=== PATIENT | female | born 1950 | race Caucasian/White ===

== ENCOUNTER 2023-12-09 19:25 | Inpatient (IN) | payer MEDICARE ==
[2023-12-09 21:57] VITALS: BMI 33.8
[2023-12-09] MEDS ORDERED: Heparin 25,000 units/D5W 500 ML IVPB SCH (22:00)
[2023-12-09] MEDS ORDERED: Ondansetron ODT 4 MG TAB PO PRN (22:22)
[2023-12-09] MEDS ORDERED: Acetaminophen 325 MG TAB PO PRN (22:22)
[2023-12-09 22:46] LABS: Hematocrit 36.9 % (36.0-47.0); Hemoglobin 11.5 g/dL (12.0-16.0); Platelet Count 159 10x3/uL (130-400)
[2023-12-09 23:29] LABS: Troponin I Less than 0.010 ng/mL (< 0.028)
[2023-12-10 00:54] LABS: PTT Greater than 250.0 sec (22.9-36.1)
[2023-12-10 02:03] LABS: Troponin I Less than 0.010 ng/mL (< 0.028)
[2023-12-10 04:56] LABS: #Basophils Less than 0.03 10x3/uL (0.0-0.2); #Eosinphils Less than 0.03 10x3/uL (0.0-0.7); %Basophils 0.5 % (0.0-1.0); %Lymphocytes 16.4 % (21.0-51.0); %Monocytes 8.3 % (0.0-10.0); %Neutrophils 74.3 % (42.0-75.0); Hematocrit 34.3 % (36.0-47.0); Hemoglobin 11.1 g/dL (12.0-16.0); Mean Corpuscular HGB CONC 32.4 g/dL (32.0-36.0); Mean Corpuscular Hemoglobin 27.5 pg (27.0-31.0); Mean Corpuscular Volume 84.9 fL (78.0-98.0); Mean Platelet Volume 8.4 fL (7.4-10.4); Platelet Count 161 10x3/uL (130-400); RBC Distribution Width 14.5 % (11.5-14.5); Red Blood Cell (RBC) Count 4.04 mill/uL (4.20-5.40)
[2023-12-10 05:38] LABS: INR-International Normal Ratio 1.1; Prothrombin Time 14.2 sec (12.0-14.7)
[2023-12-10 05:41] LABS: ALT (SGPT) 18 U/L (8-55); AST (SGOT) 23 U/L (5-34); Alkaline Phosphatase 313 U/L (40-110); Anion Gap 12 mmol/L (10-20); BUN (Urea Nitrogen) 19 mg/dL (9.8-20.1); Bilirubin, Total 0.7 mg/dL (0.2-1.2); Calc. Creatinine Clearance 53 mL/min (70-130); Calcium 8.9 mg/dL (7.8-10.44); Carbon Dioxide 20 mmol/L (23-31); Chloride 111 mmol/L (98-107); Estimated GFR 45; Globulin 3.8 g/dL (2.4-3.5); Glucose 125 mg/dL (83-110); Potassium 3.5 mmol/L (3.5-5.1); Protein, Total 6.8 g/dL (5.8-8.1); Sodium 139 mmol/L (136-145)
[2023-12-10 05:48] LABS: D-Dimer Test 5.35 mcg/mL (0.27-0.43)
[2023-12-10 08:39] LABS: Hematocrit 34.2 % (36.0-47.0); Hemoglobin 10.8 g/dL (12.0-16.0); Platelet Count 157 10x3/uL (130-400)
[2023-12-10] MEDS: Levothyroxine 175 MCG TAB PO SCH (09:00)
[2023-12-10] MEDS: Rosuvastatin 20 MG TAB PO SCH (10:09)
[2023-12-10] MEDS: Apixaban 5 MG TAB PO SCH (10:09)
[2023-12-10] MEDS: Metoprolol Tartrate 50 MG TAB PO SCH (10:10)
[2023-12-10] MEDS: Metoprolol Tartrate 25 MG TAB PO SCH ×2 (16:33→20:42)
[2023-12-10] MEDS: Communication Order-Pharmacy FS ONE (17:20)
[2023-12-10] MEDS ORDERED: Metoprolol Tartrate 25 MG TAB PO SCH (21:00)
[2023-12-11] MEDS: Levothyroxine 175 MCG TAB PO SCH (05:41)
[2023-12-11 12:42] LABS: Cardiolipin IgA Ab 3.1 APL-U/mL (<14 Negative); Cardiolipin IgM Ab 5.6 MPL-U/mL (<10 Negative); EliA APS New Method **** NEW METHOD ****
[2023-12-11 16:13] VITALS: BP 157/65; TEMP 97.3
[2023-12-17] MEDS ORDERED: Apixaban 5 MG TAB PO SCH (09:00)
== END 2023-12-11 17:14 | disposition home or self-care (01) | DRG 176 ==
LOC: IMCU/EMU 20:53 → 2NO 12-11 05:32
PROVIDERS: ADMIT Family Medicine; ATTEND Family Medicine
DX: I26.99 Other pulmonary embolism without acute cor pulmonale (principal); I50.30 Unspecified diastolic (congestive) heart failure; I13.0 Hypertensive heart and chronic kidney disease with heart failure and stage 1 through stage 4 chronic kidney disease, or unspecified chronic kidney disease; N17.9 Acute kidney failure, unspecified; E78.5 Hyperlipidemia, unspecified; E03.9 Hypothyroidism, unspecified; Z88.1 Allergy status to other antibiotic agents; Z95.5 Presence of coronary angioplasty implant and graft; Z90.49 Acquired absence of other specified parts of digestive tract; I25.2 Old myocardial infarction; E66.9 Obesity, unspecified; Z68.33 Body mass index [BMI] 33.0-33.9, adult; N18.30 Chronic kidney disease, stage 3 unspecified
CPT/HCPCS: 36415; 80053; 83090; 84484; 85025; 85300; 85303; 85306; 85307; 85598; 85610; 86147; 93306; 93970